=== PATIENT | female | born 1945 | race African-American/Black ===

== ENCOUNTER 2019-04-25 16:43 | Emergency (ER) | payer MEDICARE, BC ==
[~2019-04-25] VITALS: Ht 167.6 cm; Wt 106.1 kg
[2019-04-25] MEDS ORDERED: LEVO137T2 MT (17:23)
[2019-04-25] MEDS ORDERED: HYDR-4135 MT (17:23)
[2019-04-25] MEDS ORDERED: ASPI-986 PO (17:23)
[2019-04-25 21:18] LABS: HEMATOCRIT. 41.3 % (36.0-48.0); HEMOGLOBIN. 13.9 g/dL (12.0-16.0); MEAN CORPUSCULAR HEMOGLOBIN 29.7 pg (28.0-32.0); MEAN PLATELET VOLUME 9.5 fl (7.4-10.4); PLATELET 159 x1000/uL (130-400); RED CELL DISTRIBUTION WIDTH 14.2 % (11.6-14.6)
[2019-04-25 21:25] LABS: CHLORIDE 110 mEq/L (98-107)
[2019-04-25 21:28] LABS: ETHANOL BLOOD < 10 mg/dL
[2019-04-25 21:50] LABS: PLATELET ESTIMATE NORMAL
[2019-04-25 21:52] LABS: *AMPHETAMINES SCREEN URINE NEGATIVE (NEGATIVE); *BARBITURATES SCREEN URINE NEGATIVE (NEGATIVE); *BENZODIAZEPINES SCREEN URINE NEGATIVE (NEGATIVE); *COCAINE SCREEN URINE NEGATIVE (NEGATIVE); METHADONE URINE SCREEN NEGATIVE (NEGATIVE); OPIATES URINE SCREEN NEGATIVE (NEGATIVE); PHENCYCLIDINE URINE SCREEN NEGATIVE (NEGATIVE)
[2019-04-25 21:53] LABS: CANNABINOID URINE SCREEN NEGATIVE (NEGATIVE)
[2019-04-25 22:00] LABS: CLARITY URINE CLEAR (CLEAR); COLOR URINE YELLOW (YELLOW); KETONES URINE NEGATIVE (NEGATIVE); LEUKOCYTE ESTERASE URINE NEGATIVE (NEGATIVE); NITRITE URINE NEGATIVE (NEGATIVE); OCCULT BLOOD URINE NEGATIVE (NEGATIVE); PH URINE 6.5 (4.5-8.0); PROTEIN URINE NEGATIVE (NEGATIVE); SPECIFIC GRAVITY URINE 1.005 (1.005-1.030); UROBILINOGEN URINE 0.2 E.U./dL (0.2-1.0)
[2019-04-25] MEDS ORDERED: PROCHLORPERAZINE 10MG/2ML VIAL IV PRN (22:15)
[2019-04-25] MEDS ORDERED: ACETAMINOPHEN 500MG TABLET PO ONE (22:15)
[2019-04-25 23:06] VITALS: BP 120/79
== END 2019-04-25 23:12 | disposition home or self-care (01) ==
LOC: ER 16:43
DX: R51 Headache (principal); I10 Essential (primary) hypertension; Z88.8 Allergy status to other drugs, medicaments and biological substances; Z98.890 Other specified postprocedural states
CPT/HCPCS: 36415; 80053; 80305; 80320; 81003; 82962; 85025; 99284; G0480